=== PATIENT | male | born 1960 | race Two or more races ===

== ENCOUNTER 2017-01-24 16:33 | Emergency (ER) | payer MEDICAID, OTHER ==
[~2017-01-24] VITALS: Ht 165.1 cm; Wt 72.6 kg
[2017-01-24 17:00] VITALS: BP 195/108
[2017-01-24] MEDS ORDERED: NALBUPHINE HCL 10 MG/1ml INJECTION ONE (17:42)
[2017-01-24] MEDS ORDERED: PROMETHAZINE HCL 25 MG/ML 1ML ONE (17:42)
[2017-01-24] MEDS ORDERED: PROMETHAZINE HCL 25 MG/ML 1ML IV ONE (18:00)
[2017-01-24] MEDS ORDERED: NALBUPHINE HCL 10 MG/1ml INJECTION IV ONE (18:00)
[2017-01-24] MEDS ORDERED: LIDOCAINE 2%HCL (LOCAL ANESTH.) INJ 20ML MDV ONE (18:52)
[2017-01-24] MEDS ORDERED: LIDOCAINE 2%HCL (LOCAL ANESTH.) INJ 20ML MDV IJ ONE (19:00)
[2017-01-24] MEDS ORDERED: cefTRIAXone SOD 1,000 MG VL IM ONE (20:15)
== END 2017-01-24 20:30 | disposition home or self-care (01) ==
LOC: ER 16:33 → EDBD 16:33 → ER 20:17
DX: S51.811A Laceration without foreign body of right forearm, initial encounter (principal); W45.8XXA Other foreign body or object entering through skin, initial encounter; Y93.89 Activity, other specified; Y92.89 Other specified places as the place of occurrence of the external cause; Y99.8 Other external cause status
CPT/HCPCS: 12005; 96372; 96374; 96375; 99284; J0696; J2300; J2550